=== PATIENT | male | born 1965 | race African-American/Black ===

== ENCOUNTER 2018-07-29 23:20 | Inpatient (IN) | payer MEDICAID, OTHER, SELFPAY ==
--- NOTE | 2018-07-30 00:05 | RAD ---
CHEST ONE VIEW: HISTORY: Fever. COMPARISON: None. FINDINGS: The lungs are without confluent air space consolidation, pneumothorax, or effusion. The exam is limi estephania due to patient rotation. The cardiac silhouette and mediastinal contour appear normal. Lucency in the left upper quadrant of the abdomen may reflect distended loops of bowel. IMPRESSION: No acute intrathoracic abnormality. POS: [facility]
[2018-07-30 01:33] LABS: Bilirubin Negative (Negative); Blood, Urine Large (Negative); Clarity TURBID (Clear); Glucose, Urine (Dipstick) Negative (Negative); Leukocyte Large (Negative); Nitrite Positive (Negative); Protein, Urine (Dipstick) 300 mg/dL (Neg-Trace); Specific Gravity, Urine 1.014 (1.002-1.036); pH, Urine 7.5 (5.0-9.0)
[2018-07-30 01:35] LABS: Bacteria/HPF 4+ HPF (None Seen); Hyaline Casts/LPF 7-10 HYALINE CAST LPF (0-3 Hyaline); Pathc Cast-AUWi Flag 0.37 (0-2.49); RBC/HPF GREATER THAN 50-TNTC HPF (0-3); Squamous Epithelial 0-3 HPF (0-3)
[2018-07-30 02:27] LABS: #Monocytes 0.9 thou/uL (0.11-0.59); #Neutrophils 10.2 thou/uL (1.40-6.50); %Basophils 0.2 % (0.0-1.0); %Eosinophils 0.2 % (0.0-10.0); %Lymphocytes 7.9 % (21.0-51.0); %Monocytes 7.4 % (0.0-10.0); %Neutrophils 84.2 % (42.0-75.0); Hemoglobin 13.1 g/dL (14.0-18.0); Mean Corpuscular HGB CONC 32.7 g/dL (32.0-36.0); Mean Corpuscular Hemoglobin 29.6 pg (27.0-31.0); Mean Corpuscular Volume 90.6 fL (78.0-98.0); Mean Platelet Volume 7.3 fL (7.4-10.4); Platelet Count 407 thou/uL (130-400); RBC Distribution Width 12.6 % (11.5-14.5); Red Blood Cell (RBC) Count 4.42 mill/uL (4.70-6.10); White Blood Cell (WBC) Count 12.2 thou/uL (4.8-10.8)
[2018-07-30 03:09] LABS: ALT (SGPT) 14 U/L (8-55); AST (SGOT) 16 U/L (5-34); Albumin 3.7 g/dL (3.5-5.0); Alkaline Phosphatase 95 U/L (40-150); Anion Gap 22 mmol/L (10-20); Bilirubin, Total 0.4 mg/dL (0.2-1.2); Calc. Creatinine Clearance 0 mL/min (70-130); Calcium 9.6 mg/dL (7.8-10.44); Carbon Dioxide 17 mmol/L (22-29); Chloride 94 mmol/L (98-107); Estimated GFR-MDRD 14; Globulin 7.1 g/dL (2.4-3.5); Glucose 117 mg/dL (70-105); Potassium 5.1 mmol/L (3.5-5.1); Protein, Total 10.8 g/dL (6.0-8.3); Sodium 128 mmol/L (136-145)
[2018-07-30 03:21] LABS: BUN (Urea Nitrogen) 137 mg/dL (8.9-20.6)
[2018-07-30] MEDS ORDERED: Piperacillin/Tazobactam 4.5 GM VIAL ONE (03:41)
[2018-07-30] MEDS ORDERED: Sodium Bicarbonate 150 MEQ in Dextrose 5% in Water 1,000 ML IV SCH (04:00)
[2018-07-30] MEDS ORDERED: Ondansetron ODT 4 MG TAB SL PRN (05:39)
[2018-07-30] MEDS ORDERED: Ondansetron HCl/PF 4 MG/2 ML Vial IVP PRN ×2 (05:39→06:51)
[2018-07-30] MEDS ORDERED: Acetaminophen 325 MG TAB PO PRN ×2 (05:39→06:51)
[2018-07-30] MEDS ORDERED: Sodium Chloride 0.9% 1,000 ML IV SCH (05:45)
[2018-07-30 06:02] VITALS: BMI 30.2
[2018-07-30] MEDS ORDERED: VANCOMYCIN IVPB PRN (06:23)
[2018-07-30] MEDS ORDERED: Mag-Al 1200 mg/1200 mg/30 ML UDCUP PO PRN (06:51)
[2018-07-30] MEDS ORDERED: Loratadine 10 MG TAB PO PRN (06:51)
[2018-07-30] MEDS ORDERED: hydrALAZINE 20 MG/ML VIAL SLOW IVP PRN (06:51)
[2018-07-30] MEDS ORDERED: Loperamide HCl 2 MG CAP PO PRN (06:51)
[2018-07-30] MEDS ORDERED: Chloraseptic Spray 180 ml Bottle PO PRN (06:51)
[2018-07-30] MEDS ORDERED: HYDROcodone/Acetaminophen 5/325 mg Tablet PO PRN (06:51)
[2018-07-30] MEDS ORDERED: Milk Of Magnesia 30 ML UDCUP PO PRN (06:51)
[2018-07-30] MEDS ORDERED: Diabetic Tussin 200 MG/10 ML UDCUP PO PRN (06:51)
[2018-07-30] MEDS ORDERED: Sodium Chloride 0.65% Nasal 44 ML BOT EA NARE PRN (06:51)
[2018-07-30] MEDS ORDERED: Zolpidem Tartrate 5 MG TAB PO PRN (06:51)
[2018-07-30] MEDS ORDERED: Eucerin (Mineral Oil/Petrolatum,White) 30 gm Jar TOP PRN (06:51)
[2018-07-30] MEDS ORDERED: Artificial Tears 18 DROP/0.9 ML EA EYE PRN (06:51)
[2018-07-30] MEDS ORDERED: Senokot 8.6 MG TAB PO PRN (06:51)
[2018-07-30] MEDS ORDERED: Ondansetron ODT 4 MG TAB PO PRN (06:51)
[2018-07-30] MEDS ORDERED: Vancomycin HCl 1 GM in Premix Bag 1 BAG IVPB SCH (07:45)
[2018-07-30] MEDS ORDERED: Vancomycin Sliding Scale 1 EACH FS ONE (07:45)
[2018-07-30] MEDS ORDERED: Vancomycin HCl 750 MG in Sodium Chloride 0.9% 250 ML 250 ML IVPB SCH (07:45)
[2018-07-30] MEDS ORDERED: Vancomycin HCl 1.25 GM in Sodium Chloride 0.9% 250 ML 250 ML IVPB SCH (07:45)
[2018-07-30] MEDS ORDERED: Vancomycin HCl 500 MG in Sodium Chloride 0.9% 100 ML IVPB SCH (07:45)
[2018-07-30] MEDS ORDERED: HOLD VANCOMYCIN FOR LEVEL >20 FS SCH (07:45)
[2018-07-30 08:21] LABS: Creatinine, Urine 54.84 mg/dL (63-166)
[2018-07-30] MEDS: Famotidine/PF 20 mg/2ml Vial SLOW IVP SCH (08:41)
[2018-07-30] MEDS: Sodium Bicarbonate 150 MEQ in Dextrose 5 % And 0.9 % NaCl 1,000 ML IV SCH ×2 (08:59→18:37)
[2018-07-30] MEDS: Saccharomyces boulardii 250 MG CAP PO SCH (09:00)
[2018-07-30] MEDS ORDERED: PHENOBARBITAL 97.2 MG PO SCH (09:00)
--- NOTE | 2018-07-30 09:07 | CT ---
PRELIMINARY REPORT/[facility]/EMERGENCY AFTER HOURS PROCEDURE: EXAM: CT Abdomen and Pelvis With Intravenous Contrast CLINICAL HISTORY: 52 years old, male; Pain; Abdominal pain; Generalized; Patient HX: 52m presents to the ed for evaluat ion of abdominal pain, uti one week ago and family noticed hematuria so called 911. Patient is non-ve rbal but answers yes/no questions by shaking his head. ; Additional info: Patient was very caythotic and i was unable to advance the table anymore TECHNIQUE: Axial computed tomography images of the abdomen and pelvis with intravenous contrast. Coronal reforma tted images were created and reviewed. COMPARISON: No relevant prior studies available. FINDINGS: Limited study due to exclusion of the upper abdomen from the field of view. Spleen, most of the liver , pancreas, stomach and other upper abdominal structures are not visualized. Evaluation of the lower abdomen and pelvis is also limited due to motion and streak artifacts. There is significant bladder wall thickening with a Jim catheter in place and scattered intraluminal air pockets. Dilate d bilateral ureters with possible wall enhancement. Partially visualized bilateral hydronephrosis. No evidence of a calcified stone. Bowel loops are partially visualized, however there is no evidence of bowel obstruction. There is rectosigmoid fecal impaction. There is occlusion of the right common lydia c and proximal and mid external iliac arteries with reconstitution of the distal external iliac and f emoral arteries. No acute fracture. IMPRESSION: Limited study. Significant bladder wall thickening and bilateral hydroureteronephrosis; recommend cli nical/urinalysis correlation and urology consult as indicated. 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 Rectosigmoid fecal impaction. Findings described above. THIS REPORT CONTAINS FINDINGS THAT MAY BE CRITICAL TO PATIENT CARE. The findings were verbally commun icated via telephone conference with DARIEL GRAY at 4:23 AM CDT on 07/30/2018. The findings were ac knowledged and understood. Thank you for allowing us to participate in the care of your patient. Dictated and Authenticated by: Zeyad Vasquez MD 07/30/2018 4:28 AM Central Time ([place] & [place]) FINAL REPORT ABDOMEN CT WITHOUT CONTRAST PELVIC CT WITHOUT CONTRAST: HISTORY: Pain. Possible urinary tract infection. COMPARISON: None. FINDINGS: This examination is markedly limited. There is a Jim catheter with pockets of air in the urinary b ladder. There is extensive mucosal wall thickening of the urinary bladder with significant bladder d istention, despite having a Jim catheter. There is dilatation and enhancement involving the visual ized left and to a lesser extent right ureters. Correlate for ascending urinary tract infection. There is fecal impaction in the rectosigmoid region. There is occlusion of the right common iliac ar dante. This report is in agreement with the preliminary report by [facility]. POS: [facility]
[2018-07-30] MEDS: PHENobarbital 32.4 MG TAB PO SCH (10:06)
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
[2018-07-30] MEDS ORDERED: Piperacillin/Tazobactam 2.25 GM in Sodium Chloride 0.9% 100 ML IVPB SCH (12:00)
[2018-07-30] MEDS ORDERED: Piperacillin/Tazobactam 4.5 GM in Sodium Chloride 0.9% 100 ML IVPB SCH (12:00)
--- NOTE | 2018-07-30 12:37 | HP ---
DATE OF ADMISSION: 07/30/2018 PRIMARY CARE PHYSICIAN: [facility] call admission. REASON FOR ADMISSION: Acute kidney failure, urinary tract infection. HISTORY OF PRESENT ILLNESS: A 52-year-old male who was brought to emergency room . The patient is nonverbal and he is not able to provide any history. He has contracture of his right upper extremity. Clinically, it seems like the patient has cerebral palsy. No family mem david present at bedside who can provide any history. He has underlying history of hypertension, dysli pidemia based on his medications listed in the emergency room. In the emergency room, he was tachyca rdic with pulse 131 and rectal temperature was 100.1. He was relatively hypotensive. His routine bl ood tests showed hyponatremia and acute kidney failure. He also had leukocytosis. In the emergency room, CT of the abdomen and pelvis was done, which showed significant bladder wall thickening with bi lateral hydroureteronephrosis. Rectosigmoid fecal impaction was also noted. The patient was admitte d to medical floor. In the emergency room, the patient has received IV fluid 3 liter and bicarbonate drip was started. H e was given vancomycin and Zosyn. REVIEW OF SYSTEMS: All review of systems tried to be reviewed with the patient, but unable to review at this point and not reliable due to nonverbal status. He nods his head yes or no. In this way, t he patient only reports he has vague abdominal discomfort and hematuria. ALLERGIES: No known drug allergy. CURRENT HOME MEDICATIONS: Hydrochlorothiazide 25 mg p.o. daily, amlodipine 5 mg p.o. daily, Zocor 20 mg p.o. at bedtime, phenobarbital 97.2 mg p.o. daily. PAST MEDICAL HISTORY: Hypertension, dyslipidemia, recurrent UTI. PAST SURGICAL HISTORY: Fracture of the neck of the femur repaired. PAST PSYCHIATRIC HISTORY: Reviewed and negative. SOCIAL HISTORY: No history of tobacco, alcohol or illicit drug abuse. FAMILY HISTORY: Unable to obtain from the patient because of nonverbal status. EMERGENCY ROOM COURSE: The patient is given 3 liters IV fluid, bicarbonate drip, vancomycin and Zosy n. PHYSICAL EXAMINATION: VITAL SIGNS: On arrival, blood pressure 118/90, pulse 131, respiratory rate 18, temperature 100.1, s aturation 98% on room air, weight 90.7 kg. GENERAL: The patient is currently alert, awake, slightly tachycardic. No obvious acute distress. HEAD: Normocephalic, atraumatic. EYES: Pupils round and reactive to light. Extraocular muscles intact. ENT: Dry mucous membranes. No oral lesion, no pharyngeal erythema, no exudate. NECK: Supple. No JVD, no thyromegaly, no carotid bruit. LUNGS: Clear to auscultation without any rhonchi or rales. CARDIAC: S1, S2 regular, tachycardia. No murmur elicited, no gallop, no rub. ABDOMEN: The patient has diffuse tenderness predominantly lower part on the left side. No peritonea l sign, no guarding, no rigidity, no rebound. BACK: Unremarkable. No CVA tenderness. EXTREMITIES: Upper extremities, passive movement of all joints are normal, though the patient does h ave contracture of right upper extremity. Lower extremities, no edema. Good distal pulsation. SKIN: No skin rash. HEMATOLOGICAL: No lymphadenopathy. PSYCHIATRIC: Flat affect. NEUROLOGIC: The patient is nonverbal, unable to provide any history as well as only able to nod his head yes or no. Detailed neurological examination is not possible. GENITOURINARY: Jim catheter in place with hematuria. SIGNIFICANT LABORATORY DATA: CT of the abdomen and pelvis showing rectosigmoid fecal impaction, sign ificant bladder wall thickening with bilateral hydroureteronephrosis, right iliac artery occlusion wi th reconstitution of the femoral artery. CBC, WBC 12.2, hemoglobin 13.1, platelet 407,000. BMP, sod ium 128, potassium 5.1, chloride 94, carbon dioxide 17, anion gap 22, BUN 137, creatinine 5.43, gluco se 117, calcium 9.6. Lactic acid 1.5. LFT, AST 16, ALT 14, alkaline phosphatase 95, albumin 3.7. U rinalysis suggestive of UTI. ASSESSMENT AND PLAN: 1. Sepsis with acute organ dysfunction, most likely the patient has underlying urinary tract infecti on and he has associated acute kidney failure. The patient is kept on renally adjusted dose of vanco mycin and Zosyn and he will continue to get IV fluid. 2. Urinary tract infection. The patient has significant cystitis. Urology will be consulted to rul e out any bladder pathology. We will monitor urine output and wait for hematuria clearance. The pat ient will be on broad spectrum antibiotic therapy with vancomycin and Zosyn based on renal dose. We will follow up on urine culture result. 3. Elevated anion gap metabolic acidosis. The patient is getting bicarbonate drip as per Nephrology . 4. Acute kidney failure, likely due to prerenal as well as postrenal secondary to obstruction. Urol milagros will be consulted. We will monitor renal function, avoid nephrotoxin agent and we will continue all medication based on renal dose. 5. Hyponatremia, suspected from dehydration as well as hydrochlorothiazide. We will continue to giv e him fluid and we will repeat BMP tomorrow. 6. Hypertension. Currently, the patient has low blood pressure and so we will hold on all antihyper tensive medication. 7. Dyslipidemia. We will continue Zocor 40 mg p.o. at bedtime. 8. Seizure disorder. We will continue phenobarbital 97.2 mg p.o. daily. 9. Deep venous thrombosis prophylaxis. We will avoid heparin products because of hematuria. 10. Gastrointestinal prophylaxis. Pepcid 20 mg IV daily. 11. Code status: The patient is full code. The patient does not have any surrogate decision maker at this point. Disposition plan based on clinical course. Plan of care discussed with the patient in detail.
[2018-07-30] MEDS: Piperacillin/Tazobactam 2.25 GM in Sodium Chloride 0.9% 100 ML IVPB SCH ×2 (13:46→21:48)
[2018-07-30] MEDS ORDERED: Fleet Enema 133 ML BOT PR SCH (14:15)
[2018-07-30 16:09] LABS: HBSAg Index 0.16 S/CO (0-0.99); Hep B Surf Ag Non-Reactive S/CO (NonReactive); Hep C IgG Ab Non-Reactive (NonReactive); Hep C Index 0.16 S/CO (0-0.79)
[2018-07-30] MEDS: Atorvastatin Calcium 20 MG TAB PO SCH (20:21)
[2018-07-30] MEDS ORDERED: Simvastatin 40 MG TAB PO SCH (21:00)
--- NOTE | 2018-07-30 23:28 | CON ---
DATE OF CONSULTATION: 07/30/2018 CONSULTING PHYSICIAN: [facility]. CONSULTED PHYSICIAN: Urology, Dr. Greg Fountain. REASON FOR CONSULTATION: Hydronephrosis with acute kidney injury and gross hematuria. HISTORY OF PRESENT ILLNESS: Mr. Hitchcock is a 52-year-old black male who was admitted to the hospital fo r urinary tract infection, nausea, vomiting, and fecal and urinary incontinence. The patient is comp letely nonverbal and does not speak at all, all of the history is obtained through the medical record s and by talking to the brother over the telephone. The patient currently lives at home with his bro ther and goes to a facility during the day for care taken while the brother works. He normally voids on his own and the brother states that he does not seem to have problems with incontinence, but fang benitez uses a urinal while at the center and goes to the bathroom while at home. He has never had bloo d in his urine. He had unusual episode of urinary and fecal incontinence as well as abdominal pain, which was unusual, so the brother brought him into the emergency room where he was found to have a Fo fantasma catheter placed with an unknown amount of urine released. The patient had hematuria at that time and previously had hematuria prior to admission. He was also found to have bilateral hydroureterone phrosis with a creatinine of 5. He was admitted to the hospital for acute kidney injury with a possi ble sepsis and complicated urinary tract infection. Currently, on my visit with the patient, there i s no family at bedside. He is completely nonverbal and only nods his head yes to everything. No act ual history could be taken from the patient himself. ALLERGIES: None. HOME MEDICATIONS: 1. Simvastatin 40 mg p.o. at bedtime. 2. Phenobarbital 97.2 mg p.o. daily. 3. Hydrochlorothiazide 25 mg p.o. daily. 4. Norvasc 5 mg p.o. daily. PAST MEDICAL HISTORY: 1. Hypertension. 2. Dyslipidemia. 3. Recurrent urinary tract infections. 4. MR with significant cognitive deficits. PAST SURGICAL HISTORY: Fracture of femoral neck with ORIF. FAMILY HISTORY: Unable to obtain secondary to patient's nonverbal status. Brother states that there does not appear to be any pertinent positive findings. SOCIAL HISTORY: A brother states the patient does not use tobacco, alcohol, or illicit drugs. REVIEW OF SYSTEMS: A 12-point review of systems cannot be obtained as the patient does not speak. PHYSICAL EXAMINATION: VITAL SIGNS: Temperature 97.8, pulse 88, respirations 16, blood pressure 121/75, saturation 97% on r oom air. GENERAL: In no apparent distress, somewhat syndromic in appearance, well-nourished, well-developed, appears slightly older than stated age. HEENT: Normocephalic, atraumatic. Sclerae are nonicteric. Pupils are symmetric and round. Trachea midline. Moist mucous membranes. CARDIOVASCULAR: Regular rate and rhythm. Normal S1, S2. Symmetric pulses. CHEST: No increased work of breathing, clear anteriorly, nonlabored breathing. ABDOMEN: Soft, nontender, nondistended. No organomegaly. Positive bowel sounds. No peritoneal sig ns, rebound, or guarding. No suprapubic tenderness. GENITOURINARY: Jim catheter is in place, draining blood-tinged urine which is somewhat translucent without clots or significant opacity. Jim catheter secured with a StatLock, it is a 16-Chinese cat heter. Scrotum shows bilateral descended testes. No significant edema. The patient would not follo w commands appropriately to roll over for rectal examination, which was not performed. EXTREMITIES: No clubbing, cyanosis, or edema. Patient has contractures of his right upper arm. MUSCULOSKELETAL: Again noted contractures of upper extremities at the wrist. There are no obvious j oint deformities of the lower extremity. Per patient's history, he walks with a walker, but he was n ot attempted to ambulate on this examination. SKIN: Warm, dry, good turgor. No rashes or lesions. PSYCHIATRIC: Alert, but orientation is unable to be assessed secondary to nonverbal status. LABORATORY AND X-RAY FINDINGS: The full set of labs in the [facility] system, which I have reviewed. Of note, sodium is 128 with a creatinine of 5.4, white count is currently 12.2 with hemoglobin of 13. 1. Urinalysis demonstrates 300 protein, nitrite positive urine, large blood, greater than 50 rbc's a nd wbc's, 4+ bacteria. Urine culture demonstrates gram-negative rods, but is currently proceeding. On CT examination, CT abdomen and pelvis with contrast demonstrates limited study secondary to patien t motion and artifact, there are significant bladder wall thickening and bilateral hydroureteronephro sis with right iliac artery occlusion with reconstitution of the femoral artery. Rectosigmoid fecal impaction. ASSESSMENT AND PLAN: This is a 52-year-old black male with likely urinary retention triggering infec tions. The patient has a prior history of urinary tract infection with the marked thickening of the bladder wall. I suspect that this is an ongoing chronic process rather than something relatively tamiko sons secondary to the constipation. The fecal impaction may be the reason for his current urinary tr act infection and the patient's abdominal pain and nausea and vomiting. I would recommend aggressive management of his fecal impaction with enemas or laxatives as necessary. In addition, I would recom mend continuation of the Jim catheter for the time being as I suspect the patient likely has longst anding bladder outlet obstruction with longstanding bilateral hydronephrosis and likely chronic kidne y disease. It is unclear what his baseline creatinine is at this time, I would recommend that the ricardo hanks continue his Jim catheter for the time being and once his infection is adequately clear, he c an always be discharged with a catheter and I can follow up with him on an outpatient basis to assess his voiding status. If he is unable to void, then we will likely need to work that up further or fi gure out a long-term management solution of his urinary retention if he is retaining significant amou nts of urine. The patient's hematuria may be either due to glomerulonephritis, overdistention injury of the bladder or more than likely a significant urinary tract infection. The hematuria is not sign ificant enough to warrant any current intervention endoscopically. Therefore, I would discontinue th e antibiotics and hydration as this should clear on its own. I would agree with Dr. Arshad's recommenda tions for continued workup from a nephrologic standpoint and repletion of electrolytes and volume. W e will continue to monitor the patient's hematuria while he is here, but ultimately the patient will likely need to again be discharged with his catheter and the completion of at least 7-10 days of anti biotics.
[2018-07-31] MEDS: Piperacillin/Tazobactam 2.25 GM in Sodium Chloride 0.9% 100 ML IVPB SCH ×3 (05:09→22:29)
[2018-07-31] MEDS: Sodium Bicarbonate 150 MEQ in Dextrose 5 % And 0.9 % NaCl 1,000 ML IV SCH (05:10)
[2018-07-31 06:59] LABS: #Lymphocytes 1.4 thou/uL (1.20-3.40); #Monocytes 0.8 thou/uL (0.11-0.59); #Neutrophils 5.4 thou/uL (1.40-6.50); %Basophils 0.2 % (0.0-1.0); %Eosinophils 0.3 % (0.0-10.0); %Monocytes 10.2 % (0.0-10.0); %Neutrophils 71.3 % (42.0-75.0); Hemoglobin 9.2 g/dL (14.0-18.0); Mean Corpuscular HGB CONC 32.5 g/dL (32.0-36.0); Mean Corpuscular Volume 92.2 fL (78.0-98.0); Mean Platelet Volume 6.9 fL (7.4-10.4); Platelet Count 307 thou/uL (130-400); RBC Distribution Width 12.5 % (11.5-14.5); Red Blood Cell (RBC) Count 3.06 mill/uL (4.70-6.10); White Blood Cell (WBC) Count 7.6 thou/uL (4.8-10.8)
[2018-07-31 07:01] LABS: ALT (SGPT) 9 U/L (8-55); AST (SGOT) 12 U/L (5-34); Albumin 2.5 g/dL (3.5-5.0); Alkaline Phosphatase 60 U/L (40-150); Anion Gap 13 mmol/L (10-20); BUN (Urea Nitrogen) 80 mg/dL (8.9-20.6); Bilirubin, Total 0.2 mg/dL (0.2-1.2); Calc. Creatinine Clearance 49 mL/min (70-130); Calcium 7.9 mg/dL (7.8-10.44); Carbon Dioxide 30 mmol/L (22-29); Chloride 96 mmol/L (98-107); Estimated GFR-MDRD 34; Globulin 4.5 g/dL (2.4-3.5); Glucose 118 mg/dL (70-105); Sodium 136 mmol/L (136-145)
[2018-07-31] MEDS ORDERED: Potassium Chloride 20 MEQ TAB PO SCH (07:15)
[2018-07-31 07:29] LABS: Vancomycin, Trough 7.5 ug/mL
[2018-07-31] MEDS: Saccharomyces boulardii 250 MG CAP PO SCH (09:03)
[2018-07-31] MEDS: Famotidine/PF 20 mg/2ml Vial SLOW IVP SCH (09:03)
--- NOTE | 2018-07-31 09:25 | PRG ---
DATE OF SERVICE: 07/31/2018 RENAL MEDICINE SUBJECTIVE: Mr. Hitchcock is a 52-year-old black male who was seen for an acute kidney injury. At that t angélica as suggested by the CT scan of the abdomen - patient most likely has an obstructive uropathy seco ndary to a low bladder outlet obstruction. Urology has been consulted. Recommendations have been ma de by Urology. His renal function is actually much improved. Please note that the creatinine initia lly was 5.43, it is currently 2.44. He is diuresing well with the Jim catheter. No other complain ts today. Please note this patient is nonverbal. PHYSICAL EXAMINATION: VITAL SIGNS: Blood pressure 103/63, heart rate 82, respiratory rate 18, temperature 97.9, pulse ox 9 6% on room air. GENERAL: Awake, alert, nonverbal, not in distress SKIN: Adequate turgor. HEENT: He has pinkish conjunctivae, anicteric sclerae. NECK: No neck mass, no carotid bruits, no JVD. CHEST: No deformities. LUNGS: Clear breath sounds, no wheezing, no crackles. HEART: Normal sinus rhythm. No murmur, no gallops, no rubs. ABDOMEN: Globular, soft, nontender. No masses. EXTREMITIES: No edema, no deformities. MEDICATIONS: Medications of 07/31/2018 was reviewed. LABORATORY DATA: Laboratories of 07/31/2018; sodium 136, potassium 3, chloride 96, carbon dioxide 30 , BUN 80, creatinine 2.44, glucose 118, albumin is 2.5. Hepatitis B and C are negative. Vancomycin trough level 7.5. Urinalysis; protein is 300. ASSESSMENT AND PLAN: 1. Acute kidney injury - secondary to low bladder outlet obstruction, much improved renal function w ith a Jim catheter. Urology is following. 2. Proteinuria - patient is negative for hepatitis B and C. PERLA and ANCA have been ordered. We salvador l await further studies. The exact etiology of the proteinuria remains unclear. 3. I will at least order urine and serum protein immunoelectrophoresis for this patient if it has no t been ordered yet. For the moment, agree with current management. Recheck base met in a.m.
[2018-07-31] MEDS: Vancomycin HCl 1.5 GM in Sodium Chloride 0.9% 250 ML 300 ML IVPB SCH (09:38)
[2018-07-31] MEDS: PHENobarbital 32.4 MG TAB PO SCH (10:00)
[2018-07-31] MEDS: Potassium Chloride 20 MEQ in Lactated Ringer's 1,000 ML IV SCH ×2 (10:50→20:51)
--- NOTE | 2018-07-31 12:39 | PDOC.PN ---
- Subjective Encounter Start Date: 07/31/18 Encounter Start Time: 09:30 Patient seen and examined. No new complaints. No overnight events - Objective Resuscitation Status: Resuscitation Status FULL:Full Resuscitation MAR Reviewed: Yes Vital Signs & Weight: Vital Signs (12 hours) Temp Pulse Resp BP Pulse Ox 07/31/18 12:00 98.0 F 84 18 94/57 L 96 07/31/18 07:45 97.9 F 82 18 103/63 96 07/31/18 04:00 97.4 F L 81 16 99/62 98 Weight Weight 211 lb 0.071 oz I&O: 07/30/18 07/31/18 08/01/18 06:59 06:59 06:59 Intake Total 1000 9525 Output Total 4150 Balance 1000 5375 Result Diagrams: 07/31/18 06:28 07/31/18 06:28 Phys Exam - Physical Examination Constitutional: NAD HEENT: PERRLA, moist MMs, sclera anicteric Neck: no JVD, supple Respiratory: no wheezing, no rales, no rhonchi Cardiovascular: RRR, no significant murmur, no rub Gastrointestinal: soft, non-tender, no distention, positive bowel sounds knutson+ Musculoskeletal: no edema, pulses present contracture+ Lymphatic: no nodes Psychiatric: normal affect Skin: no rash, normal turgor Dx/Plan (1) Acute kidney failure Status: Acute (2) Fecal impaction Code(s): K56.41 - FECAL IMPACTION Status: Acute (3) Hyponatremia Code(s): E87.1 - HYPO-OSMOLALITY AND HYPONATREMIA Status: Acute (4) Metabolic acidosis Code(s): E87.2 - ACIDOSIS Status: Acute (5) Sepsis with acute organ dysfunction Code(s): A41.9 - SEPSIS, UNSPECIFIED ORGANISM; R65.20 - SEVERE SEPSIS WITHOUT SEPTIC SHOCK Status: Acute (6) UTI (urinary tract infection) Status: Acute (7) Dyslipidemia Code(s): E78.5 - HYPERLIPIDEMIA, UNSPECIFIED Status: Chronic (8) Hypertension Code(s): I10 - ESSENTIAL (PRIMARY) HYPERTENSION Status: Chronic (9) Obesity (BMI 30-39.9) Code(s): E66.9 - OBESITY, UNSPECIFIED Status: Chronic - Plan cont current plan of care, continue antibiotics * renal function improving * follow culture * continue IV antibiotics as per below * medication reviewed as below * symptomatic treatment * urology and nephrology recommendation appreciated. Review of Systems - Review of Systems ENT: negative: Ear Pain, Ear Discharge, Nose Pain, Nose Discharge, Nose Congestion, Mouth Pain, Mouth Swelling, Throat Pain, Throat Swelling, Other Respiratory: negative: Cough, Dry, Shortness of Breath, Hemoptysis, SOB with Excertion, Pleuritic Pain, Sputum, Wheezing Cardiovascular: negative: chest pain, palpitations, orthopnea, paroxysmal nocturnal dyspnea, edema, light headedness, other Gastrointestinal: negative: Nausea, Vomiting, Abdominal Pain, Diarrhea, Constipation, Melena, Hematochezia, Other Genitourinary: negative: Dysuria, Frequency, Incontinence, Hematuria, Retention , Other Musculoskeletal: negative: Neck Pain, Shoulder Pain, Arm Pain, Back Pain, Hand Pain, Leg Pain, Foot Pain, Other - Medications/Allergies Allergies/Adverse Reactions: Allergies Allergy/AdvReac Type Severity Reaction Status Date / Time No Known Drug Allergies Allergy Verified 07/30/18 05:52 Medications: Current Medications Acetaminophen (Tylenol) 650 mg PO Q4H PRN PRN Reason: Headache/Fever or Pain Hydrocodone Bitart/Acetaminophen ([place] 5/325) 1 tab PO Q4H PRN PRN Reason: Moderate Pain (4-6) Al Hydroxide/Mg Hydroxide (Maalox) 30 ml PO Q6H PRN PRN Reason: Heartburn or Indigestion Artificial Tears (Tears Naturale) 0 drop EA EYE PRN PRN PRN Reason: Dry Eyes Atorvastatin Calcium (Lipitor) 20 mg PO HS [facility] Last Admin: 07/30/18 20:21 Dose: 20 mg Famotidine (Pepcid) 20 mg SLOW IVP DAILY [facility] Last Admin: 07/31/18 09:03 Dose: 20 mg Guaifenesin (Robitussin Sf) 200 mg PO Q4H PRN PRN Reason: Cough Hydralazine HCl (Apresoline) 10 mg SLOW IVP Q4H PRN PRN Reason: Systolic BP > 180 Piperacillin Sod/Tazobactam (Sod 2.25 gm/ Sodium Chloride) 100 mls @ 200 mls/ hr IVPB Q8HR [facility] Last Admin: 07/31/18 05:09 Dose: 100 mls Potassium Chloride 20 meq/ (Lactated Ringer's) 1,010 mls @ 100 mls/hr IV .Q10H6M [facility] Last Admin: 07/31/18 10:50 Dose: 1,010 mls Vancomycin HCl 1.5 gm/ Sodium (Chloride) 300 mls @ 200 mls/hr IVPB Q24HR@1000 [facility] Last Admin: 07/31/18 09:38 Dose: 300 mls Loperamide HCl (Imodium) 2 mg PO PRN PRN PRN Reason: Diarrhea/Loose Stools Loratadine (Claritin) 10 mg PO DAILYPRN PRN PRN Reason: Sinus Symptoms Magnesium Hydroxide (Milk Of Magnesium) 30 ml PO DAILYPRN PRN PRN Reason: Constipation Mineral Oil/White Petrolatum (Eucerin Cream) 0 gm TOP BIDPRN PRN PRN Reason: Dry Skin Miscellaneous Medication (Pharmacy To Dose) 1 each IVPB ASDIR [facility] Ondansetron HCl (Zofran Odt) 4 mg PO Q6H PRN PRN Reason: Nausea/Vomiting Ondansetron HCl (Zofran) 4 mg IVP Q6H PRN PRN Reason: Nausea/Vomiting Phenobarbital (Phenobarbital) 97.2 mg PO DAILY [facility] Last Admin: 07/31/18 10:00 Dose: 97.2 mg Phenol (Chloraseptic [place] 180 Ml Bot) 0 ml PO PRN PRN PRN Reason: Sore Throat Saccharomyces Boulardii (Florastor) 250 mg PO DAILY [facility] Last Admin: 07/31/18 09:03 Dose: 250 mg Senna (Senokot) 2 tab PO HSPRN PRN PRN Reason: Constipation Sodium Chloride ([place] Nasal [place] 0.65%) 0 ml EA NARE QIDPRN PRN PRN Reason: Nasal Congestion Sodium Chloride (Flush - Normal Saline) 10 ml IVF Q12HR [facility] Last Admin: 07/31/18 09:04 Dose: Not Given Sodium Chloride (Flush - Normal Saline) 10 ml IVF PRN PRN PRN Reason: Saline Flush Zolpidem Tartrate (Ambien) 5 mg PO HSPRN PRN PRN Reason: Insomnia
--- NOTE | 2018-07-31 19:22 | PRG ---
DATE OF SERVICE: 07/31/2018 SUBJECTIVE: The patient is sleeping. He did awake upon examination, but again does not answer any q uestions, but just nods. OBJECTIVE: VITAL SIGNS: Temperature 98, pulse 84, respirations 18, blood pressure 94/57, saturations 96% on isi m air. GENERAL: No apparent distress, was sleeping, but does not appear to be in any pain. ABDOMEN: Soft, nontender, nondistended. Positive bowel sounds. HEART: Regular rate and rhythm. EXTREMITIES: No clubbing, cyanosis or edema. Persistent stable contractures. GENITOURINARY: Jim catheter in place with blood tinged urine, which is clearing and improved from prior. LABORATORY DATA: On laboratory evaluation, the full set of labs are in the [facility] system, which I reviewed. Of note, the patient's hemoglobin is 9.2 with a white count of 7.6, creatinine is signific antly improved to 2.44. ASSESSMENT AND PLAN: A 52-year-old black male with bladder outlet obstruction and significant urinar y retention with bilateral hydronephrosis and acute kidney injury with improvement with Jim cathete r. The hematuria is likely secondary to urinary tract infection as well as overdistention injury. I would recommend continuation of the Jim catheter and the patient will likely need to keep the Fole y catheter in upon discharge. I will plan to see the patient as an outpatient and consider a voiding trial or possible urodynamics and we will discuss long-term management of his bladder based on the f indings of his studies. For now, I will continue to monitor until his urine clears up and ensure patrick t his creatinine continues to decline.
[2018-07-31] MEDS: Atorvastatin Calcium 20 MG TAB PO SCH (20:53)
[2018-08-01] MEDS: Potassium Chloride 20 MEQ in Lactated Ringer's 1,000 ML IV SCH ×5 (01:08→11:39)
[2018-08-01] MEDS ORDERED: Vancomycin HCl 1 GM in Premix Bag 1 BAG IVPB SCH (04:00)
[2018-08-01] MEDS: Piperacillin/Tazobactam 2.25 GM in Sodium Chloride 0.9% 100 ML IVPB SCH (05:21)
[2018-08-01 05:49] LABS: Anion Gap 10 mmol/L (10-20); BUN (Urea Nitrogen) 42 mg/dL (8.9-20.6); Calc. Creatinine Clearance 69 mL/min (70-130); Calcium 8.4 mg/dL (7.8-10.44); Carbon Dioxide 32 mmol/L (22-29); Chloride 99 mmol/L (98-107); Estimated GFR-MDRD 51; Glucose 91 mg/dL (70-105); Potassium 3.6 mmol/L (3.5-5.1); Sodium 137 mmol/L (136-145)
[2018-08-01 06:00] LABS: #Eosinphils 0.1 thou/uL (0.0-0.7); #Lymphocytes 1.6 thou/uL (1.20-3.40); #Monocytes 0.6 thou/uL (0.11-0.59); #Neutrophils 4.7 thou/uL (1.40-6.50); %Basophils 0.3 % (0.0-1.0); %Eosinophils 0.7 % (0.0-10.0); %Lymphocytes 22.8 % (21.0-51.0); %Monocytes 8.1 % (0.0-10.0); %Neutrophils 68.1 % (42.0-75.0); Hemoglobin 9.6 g/dL (14.0-18.0); Mean Corpuscular HGB CONC 31.8 g/dL (32.0-36.0); Mean Corpuscular Hemoglobin 29.7 pg (27.0-31.0); Mean Corpuscular Volume 93.3 fL (78.0-98.0); Platelet Count 324 thou/uL (130-400); RBC Distribution Width 12.5 % (11.5-14.5); Red Blood Cell (RBC) Count 3.23 mill/uL (4.70-6.10); White Blood Cell (WBC) Count 6.9 thou/uL (4.8-10.8)
[2018-08-01] MEDS: Famotidine/PF 20 mg/2ml Vial SLOW IVP SCH (07:36)
[2018-08-01] MEDS: Saccharomyces boulardii 250 MG CAP PO SCH (08:01)
[2018-08-01] MEDS: PHENobarbital 32.4 MG TAB PO SCH (08:01)
[2018-08-01] MEDS: Vancomycin HCl 1.5 GM in Sodium Chloride 0.9% 250 ML 300 ML IVPB SCH (09:28)
--- NOTE | 2018-08-01 11:19 | PDOC.PN ---
- Subjective Encounter Start Date: 08/01/18 Encounter Start Time: 09:20 Patient seen and examined. No new complaints. No overnight events - Objective Resuscitation Status: Resuscitation Status FULL:Full Resuscitation MAR Reviewed: Yes Vital Signs & Weight: Vital Signs (12 hours) Temp Pulse Resp BP Pulse Ox 08/01/18 07:56 97.4 F L 84 20 100/63 96 08/01/18 05:31 97.4 F L 75 16 107/68 93 L 08/01/18 01:15 98.3 F 81 16 105/65 95 Weight Weight 211 lb 0.071 oz I&O: 07/31/18 08/01/18 08/02/18 06:59 06:59 06:59 Intake Total 9582 2600 Output Total 4157 3472 Balance 5374 -1603 Result Diagrams: 08/01/18 04:50 08/01/18 04:50 Phys Exam - Physical Examination Constitutional: NAD HEENT: PERRLA, moist MMs, sclera anicteric Neck: no JVD, supple Respiratory: no wheezing, no rales, no rhonchi Cardiovascular: RRR, no significant murmur, no rub Gastrointestinal: soft, non-tender, no distention, positive bowel sounds Musculoskeletal: no edema, pulses present right UE contracture at wrist Psychiatric: normal affect Skin: no rash, normal turgor Dx/Plan (1) Acute kidney failure Status: Acute (2) Fecal impaction Code(s): K56.41 - FECAL IMPACTION Status: Acute (3) Hyponatremia Code(s): E87.1 - HYPO-OSMOLALITY AND HYPONATREMIA Status: Acute (4) Metabolic acidosis Code(s): E87.2 - ACIDOSIS Status: Acute (5) Sepsis with acute organ dysfunction Code(s): A41.9 - SEPSIS, UNSPECIFIED ORGANISM; R65.20 - SEVERE SEPSIS WITHOUT SEPTIC SHOCK Status: Acute (6) UTI (urinary tract infection) Status: Acute (7) Dyslipidemia Code(s): E78.5 - HYPERLIPIDEMIA, UNSPECIFIED Status: Chronic (8) Hypertension Code(s): I10 - ESSENTIAL (PRIMARY) HYPERTENSION Status: Chronic (9) Obesity (BMI 30-39.9) Code(s): E66.9 - OBESITY, UNSPECIFIED Status: Chronic - Plan cont current plan of care, continue antibiotics, nursing home social worker * DC vancomycin * discontinue zosyn and start rocephin * renal function improving. * expecting discharge tomorrow * continue IVF Review of Systems - Review of Systems Eyes: negative: Pain, Vision Change, Conjunctivae Inflammation, Eyelid Inflammation, Redness, Other ENT: negative: Ear Pain, Ear Discharge, Nose Pain, Nose Discharge, Nose Congestion, Mouth Pain, Mouth Swelling, Throat Pain, Throat Swelling, Other Respiratory: negative: Cough, Dry, Shortness of Breath, Hemoptysis, SOB with Excertion, Pleuritic Pain, Sputum, Wheezing Cardiovascular: negative: chest pain, palpitations, orthopnea, paroxysmal nocturnal dyspnea, edema, light headedness, other Gastrointestinal: negative: Nausea, Vomiting, Abdominal Pain, Diarrhea, Constipation, Melena, Hematochezia, Other Genitourinary: negative: Dysuria, Frequency, Incontinence, Hematuria, Retention , Other Musculoskeletal: negative: Neck Pain, Shoulder Pain, Arm Pain, Back Pain, Hand Pain, Leg Pain, Foot Pain, Other Skin: negative: Rash, Lesions, Lloyd, Bruising, Other - Medications/Allergies Allergies/Adverse Reactions: Allergies Allergy/AdvReac Type Severity Reaction Status Date / Time No Known Drug Allergies Allergy Verified 07/30/18 05:52 Medications: Current Medications Acetaminophen (Tylenol) 650 mg PO Q4H PRN PRN Reason: Headache/Fever or Pain Hydrocodone Bitart/Acetaminophen ([place] 5/325) 1 tab PO Q4H PRN PRN Reason: Moderate Pain (4-6) Al Hydroxide/Mg Hydroxide (Maalox) 30 ml PO Q6H PRN PRN Reason: Heartburn or Indigestion Artificial Tears (Tears Naturale) 0 drop EA EYE PRN PRN PRN Reason: Dry Eyes Atorvastatin Calcium (Lipitor) 20 mg PO HS [facility] Last Admin: 07/31/18 20:53 Dose: 20 mg Famotidine (Pepcid) 20 mg SLOW IVP DAILY [facility] Last Admin: 08/01/18 07:36 Dose: 20 mg Guaifenesin (Robitussin Sf) 200 mg PO Q4H PRN PRN Reason: Cough Hydralazine HCl (Apresoline) 10 mg SLOW IVP Q4H PRN PRN Reason: Systolic BP > 180 Piperacillin Sod/Tazobactam (Sod 2.25 gm/ Sodium Chloride) 100 mls @ 200 mls/ hr IVPB Q8HR [facility] Last Admin: 08/01/18 05:21 Dose: 100 mls Potassium Chloride 20 meq/ (Lactated Ringer's) 1,010 mls @ 100 mls/hr IV .Q10H6M [facility] Last Admin: 08/01/18 10:50 Dose: 1,010 mls Vancomycin HCl 1.5 gm/ Sodium (Chloride) 300 mls @ 200 mls/hr IVPB Q24HR@1000 [facility] Last Admin: 08/01/18 09:28 Dose: 300 mls Loperamide HCl (Imodium) 2 mg PO PRN PRN PRN Reason: Diarrhea/Loose Stools Loratadine (Claritin) 10 mg PO DAILYPRN PRN PRN Reason: Sinus Symptoms Magnesium Hydroxide (Milk Of Magnesium) 30 ml PO DAILYPRN PRN PRN Reason: Constipation Mineral Oil/White Petrolatum (Eucerin Cream) 0 gm TOP BIDPRN PRN PRN Reason: Dry Skin Miscellaneous Medication (Pharmacy To Dose) 1 each IVPB ASDIR [facility] Ondansetron HCl (Zofran Odt) 4 mg PO Q6H PRN PRN Reason: Nausea/Vomiting Ondansetron HCl (Zofran) 4 mg IVP Q6H PRN PRN Reason: Nausea/Vomiting Phenobarbital (Phenobarbital) 97.2 mg PO DAILY [facility] Last Admin: 08/01/18 08:01 Dose: 97.2 mg Phenol (Chloraseptic [place] 180 Ml Bot) 0 ml PO PRN PRN PRN Reason: Sore Throat Saccharomyces Boulardii (Florastor) 250 mg PO DAILY [facility] Last Admin: 08/01/18 08:01 Dose: 250 mg Senna (Senokot) 2 tab PO HSPRN PRN PRN Reason: Constipation Sodium Chloride ([place] Nasal [place] 0.65%) 0 ml EA NARE QIDPRN PRN PRN Reason: Nasal Congestion Sodium Chloride (Flush - Normal Saline) 10 ml IVF Q12HR [facility] Last Admin: 08/01/18 07:37 Dose: Not Given Sodium Chloride (Flush - Normal Saline) 10 ml IVF PRN PRN PRN Reason: Saline Flush Zolpidem Tartrate (Ambien) 5 mg PO HSPRN PRN PRN Reason: Insomnia
[2018-08-01] MEDS: cefTRIAXone\\ROCEPHIN 1 GM in Sodium Chloride 0.9% 100 ML IVPB SCH (11:38)
[2018-08-01 14:06] LABS: ANA Symphony (Qualitative) Negative (Negative); dsDNA IgG Antibody 8.1 IU/mL (<10 Negative)
[2018-08-01 16:15] LABS: Cytoplasmic (C-ANCA) <1:20 titer (Neg:<1:20); Myeloperoxidase AutoAbs <9.0 U/mL (0.0-9.0); Perinuclear (P-ANCA) <1:20 titer (Neg:<1:20); Proteinase-3 AutoAbs 3.8 U/mL (0.0-3.5)
[2018-08-01] MEDS: Atorvastatin Calcium 20 MG TAB PO SCH (21:03)
[2018-08-02] MEDS: Potassium Chloride 20 MEQ in Lactated Ringer's 1,000 ML IV SCH ×2 (04:23→06:00)
[2018-08-02 08:19] LABS: #Basophils 0.1 thou/uL (0.0-0.2); #Lymphocytes 1.9 thou/uL (1.20-3.40); #Monocytes 0.1 thou/uL (0.11-0.59); #Neutrophils 5.3 thou/uL (1.40-6.50); %Basophils 0.7 % (0.0-1.0); %Eosinophils 0.3 % (0.0-10.0); %Lymphocytes 25.5 % (21.0-51.0); %Monocytes 1.9 % (0.0-10.0); %Neutrophils 71.5 % (42.0-75.0); Hemoglobin 10.1 g/dL (14.0-18.0); Mean Corpuscular HGB CONC 31.4 g/dL (32.0-36.0); Mean Corpuscular Hemoglobin 29.4 pg (27.0-31.0); Mean Corpuscular Volume 93.7 fL (78.0-98.0); Mean Platelet Volume 6.3 fL (7.4-10.4); Platelet Count 322 thou/uL (130-400); RBC Distribution Width 12.5 % (11.5-14.5); Red Blood Cell (RBC) Count 3.44 mill/uL (4.70-6.10); White Blood Cell (WBC) Count 7.5 thou/uL (4.8-10.8)
[2018-08-02] MEDS: Famotidine/PF 20 mg/2ml Vial SLOW IVP SCH (08:35)
[2018-08-02] MEDS: Saccharomyces boulardii 250 MG CAP PO SCH (08:35)
[2018-08-02 08:37] LABS: Albumin 2.7 g/dL (3.5-5.0); Anion Gap 11 mmol/L (10-20); BUN (Urea Nitrogen) 21 mg/dL (8.9-20.6); BUN/Creatinine Ratio 14.69; Calc. Creatinine Clearance 84 mL/min (70-130); Calcium 8.5 mg/dL (7.8-10.44); Carbon Dioxide 28 mmol/L (22-29); Chloride 101 mmol/L (98-107); Estimated GFR-MDRD 63; Glucose 137 mg/dL (70-105); Potassium 3.7 mmol/L (3.5-5.1); Sodium 136 mmol/L (136-145)
[2018-08-02] MEDS: PHENobarbital 32.4 MG TAB PO SCH (08:46)
[2018-08-02 09:05] LABS: Phosphorus 1.9 mg/dL (2.3-4.7)
[2018-08-02] MEDS ORDERED: Potassium Phosphate 15 MMOL in Sodium Chloride 0.9% 250 ML 250 ML IVPB SCH (10:15)
[2018-08-02] MEDS: cefTRIAXone\\ROCEPHIN 1 GM in Sodium Chloride 0.9% 100 ML IVPB SCH (11:21)
--- NOTE | 2018-08-02 11:36 | PDOC.PN ---
- Subjective Encounter Start Date: 08/02/18 Encounter Start Time: 08:30 Patient seen and examined. No new complaints. No overnight events - Objective Resuscitation Status: Resuscitation Status FULL:Full Resuscitation MAR Reviewed: Yes Vital Signs & Weight: Vital Signs (12 hours) Temp Pulse Resp BP Pulse Ox 08/02/18 11:00 98.2 F 78 16 115/76 92 L 08/02/18 08:00 98.1 F 93 16 121/76 94 L 08/02/18 04:00 98 F 72 16 123/77 93 L 08/02/18 00:05 98.2 F 79 16 116/73 92 L Weight Weight 211 lb 0.071 oz I&O: 08/01/18 08/02/18 08/03/18 06:59 06:59 06:59 Intake Total 2600 2800 Output Total 4726 3550 Balance -6516 -568 Result Diagrams: 08/02/18 08:03 08/02/18 08:03 Phys Exam - Physical Examination Constitutional: NAD HEENT: PERRLA, moist MMs, sclera anicteric Neck: no JVD, supple Respiratory: no wheezing, no rales, no rhonchi Cardiovascular: RRR, no significant murmur, no rub Gastrointestinal: soft, non-tender, no distention, positive bowel sounds knut[place]+ Musculoskeletal: no edema, pulses present left UE contracture Lymphatic: no nodes Psychiatric: normal affect, A&O x 3 Skin: no rash, normal turgor Dx/Plan (1) Acute kidney failure Status: Acute (2) Fecal impaction Code(s): K56.41 - FECAL IMPACTION Status: Acute (3) Hyponatremia Code(s): E87.1 - HYPO-OSMOLALITY AND HYPONATREMIA Status: Acute (4) Metabolic acidosis Code(s): E87.2 - ACIDOSIS Status: Acute (5) Sepsis with acute organ dysfunction Code(s): A41.9 - SEPSIS, UNSPECIFIED ORGANISM; R65.20 - SEVERE SEPSIS WITHOUT SEPTIC SHOCK Status: Acute (6) UTI (urinary tract infection) Status: Acute (7) Dyslipidemia Code(s): E78.5 - HYPERLIPIDEMIA, UNSPECIFIED Status: Chronic (8) Hypertension Code(s): I10 - ESSENTIAL (PRIMARY) HYPERTENSION Status: Chronic (9) Obesity (BMI 30-39.9) Code(s): E66.9 - OBESITY, UNSPECIFIED Status: Chronic (10) Hypophosphatemia Code(s): E83.39 - OTHER DISORDERS OF PHOSPHORUS METABOLISM Status: Acute - Plan cont current plan of care, continue antibiotics * renal function improving * replace potassium phosphate today * still has hematuria, will monitor * continue rocephin * medication reviewed as below * symptomatic treatment * DC IVF * repeat labs tomorrow * add miralax bid. Review of Systems - Review of Systems ENT: negative: Ear Pain, Ear Discharge, Nose Pain, Nose Discharge, Nose Congestion, Mouth Pain, Mouth Swelling, Throat Pain, Throat Swelling, Other Respiratory: negative: Cough, Dry, Shortness of Breath, Hemoptysis, SOB with Excertion, Pleuritic Pain, Sputum, Wheezing Cardiovascular: negative: chest pain, palpitations, orthopnea, paroxysmal nocturnal dyspnea, edema, light headedness, other Gastrointestinal: Constipation. negative: Nausea, Vomiting, Abdominal Pain, Diarrhea, Melena, Hematochezia, Other Genitourinary: Hematuria. negative: Dysuria, Frequency, Incontinence, Retention , Other Musculoskeletal: negative: Neck Pain, Shoulder Pain, Arm Pain, Back Pain, Hand Pain, Leg Pain, Foot Pain, Other - Medications/Allergies Allergies/Adverse Reactions: Allergies Allergy/AdvReac Type Severity Reaction Status Date / Time No Known Drug Allergies Allergy Verified 07/30/18 05:52 Medications: Current Medications Acetaminophen (Tylenol) 650 mg PO Q4H PRN PRN Reason: Headache/Fever or Pain Hydrocodone Bitart/Acetaminophen ([place] 5/325) 1 tab PO Q4H PRN PRN Reason: Moderate Pain (4-6) Al Hydroxide/Mg Hydroxide (Maalox) 30 ml PO Q6H PRN PRN Reason: Heartburn or Indigestion Artificial Tears (Tears Naturale) 0 drop EA EYE PRN PRN PRN Reason: Dry Eyes Atorvastatin Calcium (Lipitor) 20 mg PO HS [facility] Last Admin: 08/01/18 21:03 Dose: 20 mg Famotidine (Pepcid) 20 mg SLOW IVP DAILY [facility] Last Admin: 08/02/18 08:35 Dose: 20 mg Guaifenesin (Robitussin Sf) 200 mg PO Q4H PRN PRN Reason: Cough Hydralazine HCl (Apresoline) 10 mg SLOW IVP Q4H PRN PRN Reason: Systolic BP > 180 Ceftriaxone Sodium 1 gm/ (Sodium Chloride) 100 mls @ 200 mls/hr IVPB Q24HR [facility] Last Admin: 08/02/18 11:21 Dose: 100 mls Potassium Phosphate 15 mmol/ (Sodium Chloride) 255 mls @ 62.5 mls/hr IVPB NOW [facility] Stop: 08/02/18 15:00 Loperamide HCl (Imodium) 2 mg PO PRN PRN PRN Reason: Diarrhea/Loose Stools Loratadine (Claritin) 10 mg PO DAILYPRN PRN PRN Reason: Sinus Symptoms Magnesium Hydroxide (Milk Of Magnesium) 30 ml PO DAILYPRN PRN PRN Reason: Constipation Mineral Oil/White Petrolatum (Eucerin Cream) 0 gm TOP BIDPRN PRN PRN Reason: Dry Skin Ondansetron HCl (Zofran Odt) 4 mg PO Q6H PRN PRN Reason: Nausea/Vomiting Ondansetron HCl (Zofran) 4 mg IVP Q6H PRN PRN Reason: Nausea/Vomiting Phenobarbital (Phenobarbital) 97.2 mg PO DAILY [facility] Last Admin: 08/02/18 08:46 Dose: 97.2 mg Phenol (Chloraseptic [place] 180 Ml Bot) 0 ml PO PRN PRN PRN Reason: Sore Throat Saccharomyces Boulardii (Florastor) 250 mg PO DAILY [facility] Last Admin: 08/02/18 08:35 Dose: 250 mg Senna (Senokot) 2 tab PO HSPRN PRN PRN Reason: Constipation Sodium Chloride ([place] Nasal [place] 0.65%) 0 ml EA NARE QIDPRN PRN PRN Reason: Nasal Congestion Sodium Chloride (Flush - Normal Saline) 10 ml IVF Q12HR [facility] Last Admin: 08/02/18 08:35 Dose: Not Given Sodium Chloride (Flush - Normal Saline) 10 ml IVF PRN PRN PRN Reason: Saline Flush Zolpidem Tartrate (Ambien) 5 mg PO HSPRN PRN PRN Reason: Insomnia
[2018-08-02] MEDS: Polyethylene Glycol 3350 17 GM Packet PO SCH (20:46)
[2018-08-02] MEDS: Atorvastatin Calcium 20 MG TAB PO SCH (20:46)
[2018-08-03] MEDS: Saccharomyces boulardii 250 MG CAP PO SCH (08:00)
[2018-08-03] MEDS: Polyethylene Glycol 3350 17 GM Packet PO SCH (08:00)
[2018-08-03] MEDS: Famotidine/PF 20 mg/2ml Vial SLOW IVP SCH (08:00)
[2018-08-03] MEDS: PHENobarbital 32.4 MG TAB PO SCH (08:41)
--- NOTE | 2018-08-03 11:29 | PDOC.PN ---
- Subjective Encounter Start Date: 08/03/18 Encounter Start Time: 09:30 Patient seen and examined. No new complaints. No overnight events - Objective Resuscitation Status: Resuscitation Status FULL:Full Resuscitation MAR Reviewed: Yes Vital Signs & Weight: Vital Signs (12 hours) Temp Pulse Resp BP Pulse Ox 08/03/18 07:14 98.4 F 78 18 137/82 95 08/03/18 04:00 98.7 F 72 16 123/80 94 L Weight Weight 211 lb 0.071 oz I&O: 08/02/18 08/03/18 08/04/18 06:59 06:59 06:59 Intake Total 2800 1060 Output Total 3550 1950 Balance -750 -890 Result Diagrams: 08/02/18 08:03 08/02/18 08:03 Phys Exam - Physical Examination Constitutional: NAD HEENT: PERRLA, moist MMs, sclera anicteric Neck: no JVD, supple Respiratory: no wheezing, no rales, no rhonchi Cardiovascular: RRR, no significant murmur, no rub Gastrointestinal: soft, non-tender, no distention, positive bowel sounds Musculoskeletal: no edema, pulses present Neurological: normal sensation Lymphatic: no nodes Psychiatric: normal affect Skin: no rash, normal turgor Dx/Plan (1) Acute kidney failure Status: Acute (2) Fecal impaction Code(s): K56.41 - FECAL IMPACTION Status: Acute (3) Hyponatremia Code(s): E87.1 - HYPO-OSMOLALITY AND HYPONATREMIA Status: Acute (4) Metabolic acidosis Code(s): E87.2 - ACIDOSIS Status: Acute (5) Sepsis with acute organ dysfunction Code(s): A41.9 - SEPSIS, UNSPECIFIED ORGANISM; R65.20 - SEVERE SEPSIS WITHOUT SEPTIC SHOCK Status: Acute (6) UTI (urinary tract infection) Status: Acute (7) Dyslipidemia Code(s): E78.5 - HYPERLIPIDEMIA, UNSPECIFIED Status: Chronic (8) Hypertension Code(s): I10 - ESSENTIAL (PRIMARY) HYPERTENSION Status: Chronic (9) Obesity (BMI 30-39.9) Code(s): E66.9 - OBESITY, UNSPECIFIED Status: Chronic (10) Hypophosphatemia Code(s): E83.39 - OTHER DISORDERS OF PHOSPHORUS METABOLISM Status: Acute - Plan cont current plan of care, knut[place] catheter, continue antibiotics * medication reviewed as below * symptomatic treatment * see discharge rc. Review of Systems - Review of Systems ENT: negative: Ear Pain, Ear Discharge, Nose Pain, Nose Discharge, Nose Congestion, Mouth Pain, Mouth Swelling, Throat Pain, Throat Swelling, Other Respiratory: negative: Cough, Dry, Shortness of Breath, Hemoptysis, SOB with Excertion, Pleuritic Pain, Sputum, Wheezing Cardiovascular: negative: chest pain, palpitations, orthopnea, paroxysmal nocturnal dyspnea, edema, light headedness, other Gastrointestinal: negative: Nausea, Vomiting, Abdominal Pain, Diarrhea, Constipation, Melena, Hematochezia, Other Genitourinary: negative: Dysuria, Frequency, Incontinence, Hematuria, Retention , Other Musculoskeletal: negative: Neck Pain, Shoulder Pain, Arm Pain, Back Pain, Hand Pain, Leg Pain, Foot Pain, Other - Medications/Allergies Allergies/Adverse Reactions: Allergies Allergy/AdvReac Type Severity Reaction Status Date / Time No Known Drug Allergies Allergy Verified 07/30/18 05:52 Medications: Current Medications Acetaminophen (Tylenol) 650 mg PO Q4H PRN PRN Reason: Headache/Fever or Pain Hydrocodone Bitart/Acetaminophen ([place] 5/325) 1 tab PO Q4H PRN PRN Reason: Moderate Pain (4-6) Al Hydroxide/Mg Hydroxide (Maalox) 30 ml PO Q6H PRN PRN Reason: Heartburn or Indigestion Artificial Tears (Tears Naturale) 0 drop EA EYE PRN PRN PRN Reason: Dry Eyes Atorvastatin Calcium (Lipitor) 20 mg PO HS [facility] Last Admin: 08/02/18 20:46 Dose: 20 mg Famotidine (Pepcid) 20 mg SLOW IVP DAILY [facility] Last Admin: 08/03/18 08:00 Dose: 20 mg Guaifenesin (Robitussin Sf) 200 mg PO Q4H PRN PRN Reason: Cough Hydralazine HCl (Apresoline) 10 mg SLOW IVP Q4H PRN PRN Reason: Systolic BP > 180 Ceftriaxone Sodium 1 gm/ (Sodium Chloride) 100 mls @ 200 mls/hr IVPB Q24HR [facility] Last Admin: 08/02/18 11:21 Dose: 100 mls Loperamide HCl (Imodium) 2 mg PO PRN PRN PRN Reason: Diarrhea/Loose Stools Loratadine (Claritin) 10 mg PO DAILYPRN PRN PRN Reason: Sinus Symptoms Magnesium Hydroxide (Milk Of Magnesium) 30 ml PO DAILYPRN PRN PRN Reason: Constipation Mineral Oil/White Petrolatum (Eucerin Cream) 0 gm TOP BIDPRN PRN PRN Reason: Dry Skin Ondansetron HCl (Zofran Odt) 4 mg PO Q6H PRN PRN Reason: Nausea/Vomiting Ondansetron HCl (Zofran) 4 mg IVP Q6H PRN PRN Reason: Nausea/Vomiting Phenobarbital (Phenobarbital) 97.2 mg PO DAILY [facility] Last Admin: 08/03/18 08:41 Dose: 97.2 mg Phenol (Chloraseptic [place] 180 Ml Bot) 0 ml PO PRN PRN PRN Reason: Sore Throat Polyethylene Glycol (Miralax) 17 gm PO BID [facility] Last Admin: 08/03/18 08:00 Dose: 17 gm Saccharomyces Boulardii (Florastor) 250 mg PO DAILY [facility] Last Admin: 08/03/18 08:00 Dose: 250 mg Senna (Senokot) 2 tab PO HSPRN PRN PRN Reason: Constipation Sodium Chloride ([place] Nasal [place] 0.65%) 0 ml EA NARE QIDPRN PRN PRN Reason: Nasal Congestion Sodium Chloride (Flush - Normal Saline) 10 ml IVF Q12HR [facility] Last Admin: 08/03/18 08:01 Dose: 10 ml Sodium Chloride (Flush - Normal Saline) 10 ml IVF PRN PRN PRN Reason: Saline Flush Zolpidem Tartrate (Ambien) 5 mg PO HSPRN PRN PRN Reason: Insomnia
[2018-08-03] MEDS: cefTRIAXone\\ROCEPHIN 1 GM in Sodium Chloride 0.9% 100 ML IVPB SCH (12:14)
--- NOTE | 2018-08-03 12:32 | DIS ---
DATE OF ADMISSION: 07/30/2018 DATE OF DISCHARGE: 08/03/2018 PRIMARY CARE PHYSICIAN: [facility] call admission. DISCHARGE DISPOSITION: Home. PRIMARY DISCHARGE DIAGNOSES: Acute kidney failure, fecal impaction, hyponatremia, hypophosphatemia, metabolic acidosis, sepsis with acute organ dysfunction, urinary tract infection. SECONDARY DISCHARGE DIAGNOSES: Hypertension, dyslipidemia, obesity with body mass index 31. PRIMARY PROCEDURE/OPERATION: None. RADIOLOGICAL INVESTIGATION: CT of the abdomen and pelvis on admission showed significant bladder wal l thickening with bilateral hydroureteronephrosis. 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 Chest x-ray was unremarkable. SIGNIFICANT LABORATORY DATA: WBC 7.5, hemoglobin 10.1, platelets 322. Sodium 136, creatinine 1.43, phosphorus 1.9, albumin 2.7. Urinalysis suggestive of UTI. PERLA negative and other autoimmune marker also negative. Hepatitis C negative. Urine culture grew E. coli. Blood culture was negative. DISCHARGE MEDICATIONS: Bactrim DS 1 tablet daily for 7 more days, Florastor 250 mg p.o. daily for 7 days, MiraLax 17 grams p.o. b.i.d., Zocor 40 mg p.o. at bedtime, phenobarbital 97.2 mg p.o. daily, No rvasc 5 mg p.o. daily. CONTRAINDICATIONS: None. CODE STATUS: FULL CODE. INPATIENT CONSULTANTS: Dr. Fountain, urologist, was following while in hospital and he recommended to leave Jim catheter in upon discharge and patient will need a follow up with the Urology, Dr. Arshad w as following while in hospital. TEST RESULTS PENDING ON DISCHARGE: None. ALLERGIES: No known drug allergy. DISCHARGE PLAN: Post hospital, patient will follow up with Dr. Александр Garza urologist and Dr. Arshad, disability rater as instructed and he will see primary care physician as instructed. HOSPITAL COURSE: A 52-year-old male who was admitted by me. Please see my HPI for further details. On admission, the patient was not able to provide any history because of his nonverbal status. He w as found with acute kidney failure. We did CT of the abdomen and pelvis which showed significant cys titis with hydroureteronephrosis secondary to cystitis. We consulted Urology and they recommended to leave Jim catheter in upon discharge. While in hospital, he had hematuria because of over-distent ion injury as well as possibly UTI. Culture grew E. coli which was treated with Rocephin while in [facility]. Upon discharge, we changed to Bactrim for another 7 days. The patient will be discharged wi th the Jim catheter. We are arranging home health. The patient is significantly alert enough to r espond with sign language, but he is not able to communicate by language, but he understands and node s yes or no by his head. During this admission, he required a stool softener as well as Fleet anemia for his rectosigmoid impa ction. Upon discharge, we are prescribing MiraLax on a daily basis. Rest of medication will be cont inued as per previous. The patient is overall doing very well. His renal function is improving. His vitals are stable. He is afebrile. The patient is seen and examined at bedside today. Please see my progress note from lamberto kaur for further detail. He will follow up with the above-mentioned wardrobe image consultant after discharge.
[2018-08-03 16:14] LABS: Albumin-Ur 34.2 % (.); Alpha 1 - Ur 5.6 % (.); Alpha 2 - Ur 9.7 % (.); Beta-Ur 15.8 % (.); Gamma-Ur 34.6 % (.); M-Spike,% Not Observed % (Not Observed); Protein, Urine 122.6 mg/dL (Not Estab.)
[2018-08-03 16:27] VITALS: BP 118/78; TEMP 98
== END 2018-08-03 16:13 | disposition home or self-care (01) | DRG 872 ==
LOC: ERS 23:20 → T4-B 07-30 03:00
PROVIDERS: ADMIT Hospitalist; ATTEND Hospitalist
DX: A41.51 Sepsis due to Escherichia coli [E. coli] (principal); E87.2 Acidosis; N17.9 Acute kidney failure, unspecified; E87.1 Hypo-osmolality and hyponatremia; N13.30 Unspecified hydronephrosis; N30.01 Acute cystitis with hematuria; K56.41 Fecal impaction; G80.9 Cerebral palsy, unspecified; F80.1 Expressive language disorder; E78.5 Hyperlipidemia, unspecified; I10 Essential (primary) hypertension; I95.9 Hypotension, unspecified; Z79.899 Other long term (current) drug therapy; R65.20 Severe sepsis without septic shock; G40.909 Epilepsy, unspecified, not intractable, without status epilepticus; N32.0 Bladder-neck obstruction; R80.9 Proteinuria, unspecified; E66.9 Obesity, unspecified; Z68.31 Body mass index [BMI] 31.0-31.9, adult
CPT/HCPCS: 36415; 51702; 71045; 74177; 80048; 80053; 80069; 80202; 81003; 81015; 82570; 83520; 83605; 84156; 84166; 84300; 85025; 86038; 86225; 86256; 86803; 87040; 87077; 87086; 87186; 87340; 93005; 96361; 96365; 96367; 96368; A4216; J0696; J2543; J3370; J3480; J7042; J7050; J7070; J7120; S0028